=== PATIENT | female | born 1965 | race Caucasian/White ===

== ENCOUNTER 2018-12-03 08:16 | Day surgery (SDC) | payer OTHER ==
[~2018-12-03] VITALS: Ht 157.5 cm; Wt 60.5 kg
[2018-12-03 08:39] LABS: HEMATOCRIT 40.6 % (36.0-48.0); HEMOGLOBIN 14.5 g/dL (12-16); MCH 32.2 pg (26.0-34.0); MCHC 35.7 g/dL (31.0-37.0); MCV 90.2 fL (80.0-100.0); MEAN PLATELET VOLUME 9.2 fL (7.4-10.4); RBC 4.5 10x6/uL (4.00-5.40); RDW 12.1 % (11.5-14.5); WBC 6.4 10x3/uL (4.8-10.8)
[2018-12-03] MEDS ORDERED: CALCIUM 600 +1 EAC3 PO (08:53)
[2018-12-03] MEDS ORDERED: VALTREX500 MG PO (08:53)
[2018-12-03] MEDS ORDERED: ESTRACE2 MG PO (08:53)
[2018-12-03] MEDS ORDERED: PROVERA2.5 MG PO (08:53)
[2018-12-03] MEDS ORDERED: PROBIOTIC BLEN1 EACH (08:54)
[2018-12-03 09:00] VITALS: BP 143/71; Ht 157.5 cm; Wt 60.5 kg
--- NOTE | 2018-12-03 10:20 | NUR ---
PT LEAVING OPS AT THIS TIME VIA WC. NAD NOTED.
--- NOTE | 2018-12-03 10:20 | NUR ---
PT DC INSTRUCTIONS REVIEWED AT THIS TIME, PT VERBALIZES UNDERSTANDING. PT IV REMOVED AT THIS TIME, INTACT, NO REDNESS OR SWELLING NOTED AT SITE.
--- NOTE | 2018-12-06 16:17 | OP ---
PATIENT NAME: FRANCIS HOUSTON MEDICAL RECORD: [id number] :61 LOCATION:D.OPS ADMISSION DATE: SURGEON: NIGHAT MELENDEZ DO DATE OF OPERATION: 12/03/2018 PROCEDURE: Colonoscopy. INDICATIONS FOR PROCEDURE: Screening for colorectal cancer. SCOPE: Olympus video pediatric colonoscope. MEDICATIONS: Propofol 280 mg IV per anesthesia. WITHDRAWAL TIME: 9 minutes. COMPLICATIONS: None. FINDINGS: Informed consent was given. The patient was made comfortable with the above medication. After reaching an adequate level of sedation by slow IV push, the patient was placed on her left side. A digital rectal examination was performed and was normal. The endoscope was then advanced under direct visualization to the cecum and terminal ileum. The endoscope was slowly withdrawn and the mucosa was carefully examined. The prep quality was excellent. There were no polyps or diverticula visualized on today's examination. Retroflexion was performed in the rectum with visualization of a normal-appearing rectal wall. The endoscope was unretroflexed and withdrawn from the patient. The patient tolerated the procedure well, and there were no complications. IMPRESSION: Normal colonoscopy to terminal ileum. PLAN AND RECOMMENDATIONS: 1. Discharge home when recovery parameters are met. 2. Continue current diet. 3. Continue current medications. 4. Recall colonoscopy in 10 years for routine colon cancer screening. TRANSINT:[id number] Voice Confirmation ID: [id number] DOCUMENT ID: [id number] NIGHAT MELENDEZ DO at 1617 CC: [id number] DICTATION DATE: 12/03/18 0943 INTERVENTION TEACHER: 12/03/18 1210 [facility] 12/03/[address] [id number]
== END 2018-12-03 10:21 | disposition home or self-care (01) ==
LOC: D.OPS 08:16
PROVIDERS: Anesthesiology; ATTEND Internal Medicine Gastroenterology
DX: Z12.11 Encounter for screening for malignant neoplasm of colon (principal); Z01.812 Encounter for preprocedural laboratory examination